=== PATIENT | male | born 1960 | race Caucasian/White ===

== ENCOUNTER 2024-09-23 08:09 | Observation (INO) ==
--- NOTE | 2024-08-22 11:51 | PAT Medication Instructions ---
Medication Instructions Date of Service August 22, 2024 Home Medications amlodipine 10 mg tablet 10 mg PO QAM atenolol 50 mg tablet 50 mg PO QAM atorvastatin 80 mg tablet 80 mg PO HS ycugfvhykm-yaoosjpotalpk-neunngvo 50 mg-300 mg-40 mg capsule (Fioricet) 1 cap PO BID cholecalciferol (vitamin D3) 50 mcg (2,000 unit) tablet 2,000 unit PO QAM levothyroxine 50 mcg tablet 50 mcg PO QAM omega-3s 300 nb-saw-yxk-other ebinh6e-uxds oil 1,000 mg capsule ([place]-3 Fish Oil) 1 cap PO QAM rosuvastatin 40 mg tablet 40 mg PO HS topiramate 50 mg capsule,extended release 24 hr 50 mg PO QAM albuterol sulfate 90 mcg/actuation aerosol inhaler 2 puff inhalation UD PRN SOB finasteride 5 mg tablet 5 mg PO QAM mometasone 110 mcg/actuation(30 doses) breath activated powder inhaler 2 inh inhalation DAILY multivitamin 1 tab PO QAM rivaroxaban 20 mg tablet (Xarelto) 20 mg PO QAM semaglutide 0.25 mg or 0.5 mg (2 mg/3 mL) subcutaneous pen injector 0.5 mg subcut Q7D triamterene 37.5 mg PO QAM Continue as directed mometasone 110 mcg/actuation(30 doses) breath activated powder inhaler 2 inh inhalation DAILY ASK your prescriber and surgeon rivaroxaban 20 mg tablet (Xarelto) 20 mg PO QAM (in order to get spinal anesthesia DOS- must be off Xarelto/rivaroxaban for at least 72 hours) STOP taking 2 weeks before surgery omega-3s 300 es-fcg-qlz-other iduvx0d-eijv oil 1,000 mg capsule ([place]-3 Fish Oil) 1 cap PO QAM STOP taking at least 7 days before surgery semaglutide 0.25 mg or 0.5 mg (2 mg/3 mL) subcutaneous pen injector 0.5 mg subcut Q7D DO NOT take the morning of surgery edsuxiraik-ztwxkausxvbrf-vdoheqox 50 mg-300 mg-40 mg capsule (Fioricet) 1 cap PO BID cholecalciferol (vitamin D3) 50 mcg (2,000 unit) tablet 2,000 unit PO QAM multivitamin 1 tab PO QAM triamterene 37.5 mg PO QAM Take morning of surgery With a small sip of water, OTHERWISE NOTHING TO EAT OR DRINK AFTER MIDNIGHT: amlodipine 10 mg tablet 10 mg PO QAM atenolol 50 mg tablet 50 mg PO QAM levothyroxine 50 mcg tablet 50 mcg PO QAM topiramate 50 mg capsule,extended release 24 hr 50 mg PO QAM albuterol sulfate 90 mcg/actuation aerosol inhaler 2 puff inhalation UD PRN SOB (use if needed; please bring with you to hospital day of surgery if possible) finasteride 5 mg tablet 5 mg PO QAM Take evening before surgery atorvastatin 80 mg tablet 80 mg PO HS ciahecbsvc-hqezhmfdklapj-mazahrff 50 mg-300 mg-40 mg capsule (Fioricet) 1 cap PO BID rosuvastatin 40 mg tablet 40 mg PO HS albuterol sulfate 90 mcg/actuation aerosol inhaler 2 puff inhalation UD PRN SOB (if needed) Other Notes If you have any questions please call us at [phone] or [phone] or [phone] or [phone]
--- NOTE | 2024-08-31 09:56 | Anesthesiology Consultation ---
Date of Service August 31, 2024 Assessment & Plan (1) Encounter for pre-operative examination: - Infectious disease screening: Per assessment on 08/31/24- No known recent infectious disease contacts or current infectious disease symptoms. - Outpatient joint assessment: Pt currently scheduled for inpatient pathway. If surgeon requests review for outpatient joint pathway, patient is not recommended candidate for outpatient joint program from anesthesia standpoint based on available information. - Xarelto instructions: patient made aware that for neuraxial anesthesia, Xarelto needs to be held 72 hours prior to surgery. Patient voiced understanding/will check if okay with prescriber. - Semaglutide instructions: Patient informed by PAT to stop 7 days prior to surgery- voiced understanding. DOS 09/23. Advised last dose to be 09/16. Chart Review Chart Review: Acceptable Risk for Surgery and Patient seen in Pre Admission Testing Teaching & Discussion Pre-Anesthesia Teaching/Discussion Notes: Instructed NPO after midnight before surgery,except medications with 15 cc of water. Medication instructions provided according to the PAT guidelines. History Surgery Operation Date: 09/23/24 09:00 Proposed Procedures p Right Total Knee Arthroplasty - Gil Benitez DO Height/Weight Height: 5 ft 11 in Weight: 128.9 kg Allergies Allergy/AdvReac Type Severity Reaction Status Date / Time Penicillins Allergy Unknown Unknown Verified 08/29/24 11:53 (childhood) Medications Home Medications Medication Instructions Recorded Confirmed Last Taken amlodipine 10 mg tablet 10 mg PO QAM 01/05/19 08/19/24 01/19/19 atenolol 50 mg tablet 50 mg PO QAM 01/05/19 08/19/24 01/19/19 atorvastatin 80 mg tablet 80 mg PO HS 01/05/19 08/19/24 01/19/19 yxqqfticea-jdhfrofygzclm-iaboaciw 1 cap PO BID 01/05/19 08/19/24 01/15/19 50 mg-300 mg-40 mg capsule (Fioricet) cholecalciferol (vitamin D3) 50 2,000 unit PO QAM 01/05/19 08/19/24 01/19/19 mcg (2,000 unit) tablet levothyroxine 50 mcg tablet 50 mcg PO QAM 01/05/19 08/19/24 01/19/19 omega-3s 300 dd-urc-vxj-other 1 cap PO QAM 07/04/1608/19/24 01/19/19 gvhgg5o-bifq oil 1,000 mg capsule ([place]-3 Fish Oil) rosuvastatin 40 mg tablet 40 mg PO HS 01/05/19 08/19/24 01/19/19 topiramate 50 mg capsule,extended 50 mg PO QAM 01/05/19 08/19/24 01/19/19 release 24 hr albuterol sulfate 90 mcg/actuation 2 puff inhalation UD PRN SOB 08/19/24 08/19/24 Unknown aerosol inhaler finasteride 5 mg tablet 5 mg PO QAM 08/19/24 08/19/24 Unknown mometasone 110 mcg/actuation(30 2 inh inhalation DAILY 08/19/24 08/19/24 Unknown doses) breath activated powder inhaler multivitamin 1 tab PO QAM 08/19/24 08/19/24 Unknown rivaroxaban 20 mg tablet (Xarelto) 20 mg PO QAM 08/19/24 08/19/24 Unknown semaglutide 0.25 mg or 0.5 mg (2 0.5 mg subcut Q7D 08/19/24 08/19/24 Unknown mg/3 mL) subcutaneous pen injector triamterene 37.5 mg PO QAM 08/19/24 08/19/24 Unknown Past Medical History Medical History Asthma Atrial fibrillation Taking Xarelto Follows with [facility] BPH (benign prostatic hyperplasia) Hx of colonic polyps Hx of migraines Hyperlipidemia Hypertension Hypothyroidism Osteoarthritis Exercise / Class Metabolic Activity III < 4 Walking/Shop/Light housework Past Family History Family History Father Family history of diabetes mellitus Other No family history of adverse response to anesthesia Past Surgical History Surgical History History of colonoscopy History of tonsillectomy History of wisdom tooth extraction Hx of foot surgery Left big toe partial amputation (r/t trauma) Right 2nd toe amputation (r/t infection) Status post correction of deviated nasal septum Past Anesthesia History No Hx of Anesthesia Complications and No Family Hx of Anesthesia Complications History of PONV No Hx of PONV and No Hx of Motion Sickness Social History Smoking Status: Former smoker Do You Dip or Chew Tobacco: No (Quit years ago; advised) Smoking End Date: Quit years ago Hx Alcohol Use: Yes Alcohol type: other alcohol intake frequency: a few times a week Hx Substance Use: No substance use type: does not use Review of Systems Patient denies chest pain, shortness of breath, fever, chills, cough, wheezing, palpitations. Physical Exam Vital Signs BP 129/93 P 81 TEMP 98.2 SP02 96%RA RESP 16 Physical Full cervical extension range of motion. Full TMJ range of motion. TMD 3 finger breaths Mallampati Score III Dentition: left lower side missing, crown (molar) Lungs: clear throughout to auscultation Cardiac: regular rate and irregularly rhythm, no murmurs noted Spine: normal Carotid arteries: negative bruit Extremities: no LE edema Thick neck Lab Results Anesthesia Preop Results Results Anesthesia Widget: WBC 11.62 K/ul (4.8-10.8) H 08/31/24 Hgb 14.7 g/dl (14.0-18.0) 08/31/24 Hct 43.5 % (42.0-52.0) 08/31/24 Plt 390 K/uL (130-400) 08/31/24 Na 139 mmol/L (136-145) 08/31/24 K 3.7 mmol/L (3.5-5.1) 08/31/24 Cl 106 mmol/L (98-107) 08/31/24 CO2 28 mmol/L (21-32) 08/31/24 BUN 21 mg/dl (6-23) 08/31/24 Creat 0.76 mg/dl (0.6-1.4) 08/31/24 Glucose Level 86 mg/dl (70-99(Fasting)) 08/31/24 PT 11.1 Seconds (9.0-12.0) 08/31/24 PTT 31 Seconds (21-31) 08/31/24 INR 1.0 (0.9-1.1) 08/31/24 Blood Type A Positive 08/31/24 Antibody Screen NEGATIVE 08/31/24 Testing Electrocardiogram Date: 08/31/24 A.fib at 78bpm. Chest X-Ray Date: 08/31/24 FINDINGS: There is mild cardiomegaly without pulmonary vascular congestion. No effusion or consolidation. There is aortic tortuosity. IMPRESSION: No acute findings. Stress Test Date: 11/02/18 Type: exercise 4.6 METS. 107% MPHR. Negative for ischemia by EKG criteria.
[~2024-09-23 08:09] MED LIST: ROPIVACAINE 0.5% 5 MG/ML 30 ML VIAL ONE
[2024-09-23] MEDS ORDERED: MIDAZOLAM HCL 1 MG/ML 2ML VIAL ONE (09:14)
[2024-09-23] MEDS ORDERED: PROPOFOL IV EMULSION 10 MG/ML 20 ML VIAL IV ONE (09:15)
[2024-09-23] MEDS: GABAPENTIN 600 MG DOSE PO SCH (09:20)
[2024-09-23] MEDS: FAMOTIDINE 20 MG TAB PO SCH (09:20)
[2024-09-23] MEDS: LR 60ML/HR IV SCH (09:20)
[2024-09-23] MEDS: ACETAMINOPHEN 500 MG TAB PO SCH ×2 (09:20→15:10)
[2024-09-23] MEDS: LR 500ML BOLUS, THEN 15ML/HR IV SCH (09:32)
[2024-09-23] MEDS: dexAMETHasone**PF** 10 MG/ML VIAL IV SCH (09:32)
--- NOTE | 2024-09-23 10:04 | History & Physical Bridge Note ---
Date of Service September 23, 2024 History & Physical Bridge Note I have examined the patient, reviewed the History & Physical and in the interval since the performance of the History & Physical I have noted the following changes of clinical significance: no changes noted
[2024-09-23] MEDS ORDERED: HYDROmorphone INJ 1 MG/ML SYRINGE IV PRN (10:27)
[2024-09-23] MEDS ORDERED: ePHEDrine sulfate 50 MG/ML AMP IV PRN (10:27)
[2024-09-23] MEDS ORDERED: ONDANSETRON INJ 2 MG/ML 2 ML VIAL IV PRN ×2 (10:27→14:22)
[2024-09-23] MEDS ORDERED: ATROPINE SULFATE 0.1 MG/ML 10ML SYR IV PRN (10:27)
[2024-09-23] MEDS ORDERED: fentaNYL citrate PF 100 MCG/2 ML VIAL IV PRN (10:27)
[2024-09-23] MEDS: TRANEXAMIC ACID 1,000 MG **IV Pre-op IV SCH (10:56)
[2024-09-23] MEDS: ceFAZolin 3000MG 3,000 MG/72.5 ML BAG IV SCH (11:15)
[2024-09-23] MEDS: ORTHO JOINT ANESTHETIC ONE (11:42)
[2024-09-23] MEDS: ROPIV 0.5% 246mg, Ketorolac 30mg, EPINEPHrine 0.5mg in NSS INFIL SCH (11:42)
[2024-09-23] MEDS: TRANEXAMIC ACID 1,000 MG **IV Intra-op IV SCH (12:12)
--- NOTE | 2024-09-23 12:18 | Operative Report ---
PG Post Operative Report Pre & Post Diagnosis Operation Date: 09/23/24 11:00 Pre-Op Diagnosis: Right Knee Arthritis Post-Op Diagnosis: Right Knee Arthritis I identified the patient and participated in the time-out.: Yes Procedure Operation Date: 09/23/24 11:00 Actual Procedures p Right Total Knee Arthroplasty, Cemented(Right) - Gil Benitez DO Surgeon Gil Benitez DO Carbon Furnace Operator Alex Galicia PA-C Estimated Blood Loss 50 Findings Consistent with Post-Op Diagnosis Specimens Right femoral and tibial bone Description of Procedure Implants used: I used a Manny Persona total knee arthroplasty system with a size 10 standard PS femur, G tibia, 37 oval patella, and a size 10 CPS polyethylene bearing. All components were cemented in place with Biomet cement. Barrie arrived [facility] for the above procedure. He was seen in the preoperative holding area and the operative extremity was identified and signed. He was given a preoperative antibiotic, TXA, a spinal anesthetic and an adductor nerve block. He was taken back to the operating room and laid on the table in supine position. He was given basic sedation. The operative knee was then prepped and draped in sterile fashion. A timeout was done, and the patient and the operative extremity was properly identified. A midline incision was made directly over the patella. Dissection was taken down to the extensor mechanism. A medial parapatellar arthrotomy was used. The medial retinaculum was released and the fat pad was mostly excised. The knee was flexed and the ACL, PCL, and meniscus were removed. A drill was sent down the center of the femoral canal followed by an intramedullary luma. Off that luma a distal femoral cutting block was placed. 9 mm was resected off the distal femur at 5 of valgus. A posterior referencing AP sizing guide was then placed on the distal femur. The femur measured to be a size 10. 2 drill holes were placed in 3 of external rotation. A 4-in-1 cutting block was then impacted into place. Anterior, posterior, and chamfer cuts were then made. The proximal tibia was then exposed. An external tibial alignment guide was placed. A tibial cut guide was then anchored in place and the proximal tibia was then resected. The posterior aspect of the knee was then opened up and any additional meniscus fragments and osteophytes were removed. The tibia measured to be a size G. The tibial plate was then placed in the appropriate rotation and the tibia was drilled and punched. Trial components were then placed. I used a size 10 CPS polyethylene insert. The knee was brought through a full range of motion and felt to be stable. The peg holes for the femoral component were then drilled. The patella was then everted and 9 mm was resected off the posterior aspect of the patella. The patella measured to be a size 37 oval. 3 peg holes were then drilled. A trial patella was placed. The knee was once again brought through a full range of motion and felt to be stable. Trial components were then removed. The surrounding soft tissues were injected with 100 cc of an orthopedic pain control cocktail. All components were then cemented into place with Biomet cement. The final polyethylene insert was then snapped into place. Once cement was dry the tourniquet was deflated. Hemostasis was obtained. A dilute betadyne lavage was then done for 3 minutes. The joint was then irrigated with normal saline solution. The medial parapatellar arthrotomy was then closed with #1 Vicryl suture. The skin was closed with 2-0 Vicryl, 3-0V lock suture, and sameer. A soft compressive dressing was placed. He was then transferred to a hospital bed and taken to the postanesthesia care unit in stable condition. He tolerated the procedure well. Alex Galicia PA-C, was present for the entire procedure. He was critical for patient positioning, prepping, draping, retraction exposure, wound closure and application of sterile dressing. I attest to the content of the Intraoperative Record and any orders documented therein. Any exceptions are noted below.
--- NOTE | 2024-09-23 13:07 | XRay Report ---
XR knee RT 1 or 2V routine CLINICAL HISTORY: Surgical Post Op COMPARISON: None FINDINGS: Right knee prosthesis shows no hardware complication. There is expected soft tissue gas. S kin sameer are present. IMPRESSION: Unremarkable postoperative exam. ACT 112: Negative or not required by law. Electronically signed by: Bassem Whitehead M.D. 09/23/2024 1:05 PM
--- NOTE | 2024-09-23 13:42 | Anesthesiology Progress Note ---
Date of Service September 23, 2024 Anesthesia Post Procedure Vital Signs Vital Signs: Temp Pulse Pulse Resp BP Pulse Ox O2 Del Method 09/23/24 13:30 62 16 106/80 94 Nasal Cannula 09/23/24 13:20 58 L 20 114/85 95 Nasal Cannula 09/23/24 13:10 66 20 122/91 96 Oxymask 09/23/24 13:00 68 21 107/87 96 Oxymask 09/23/24 12:50 64 20 112/68 97 Oxymask 09/23/24 12:43 36.0 C L 69 14 98/72 L 92 Oxymask 09/23/24 09:09 Room Air 09/23/24 09:09 36.4 C L 82 20 138/99 95 Room Air O2 Flow Rate 09/23/24 13:30 2 09/23/24 13:20 2 09/23/24 13:10 3 09/23/24 13:00 4 09/23/24 12:50 6 09/23/24 12:43 6 09/23/24 09:09 09/23/24 09:09 Pain Intensity Right Knee: Pain Intensity: 8 Transfer of Care Handoff Completed per policy Notes Mental Status: alert / awake / arousable and participated in evaluation Patient Amnestic to Procedure: Yes Nausea / Vomiting: adequately controlled Pain: adequately controlled Airway Patency, RR, SpO2: stable & adequate BP & HR: stable & adequate Hydration State: stable & adequate Anesthetic Complications: no major complications apparent and Pt Satisfied with anesthetic care
[2024-09-23] MEDS ORDERED: NALOXONE HCL 0.4 MG/1 ML VIAL/CARP IV PRN (14:22)
[2024-09-23] MEDS ORDERED: MAGNESIUM HYDROXIDE SUSP 30 ML UDC PO PRN (14:22)
[2024-09-23] MEDS ORDERED: bisacodyL 10 MG SUPP PR PRN (14:22)
[2024-09-23] MEDS ORDERED: ALBUTEROL HFA 8 GM INHALER INH PRN (14:22)
[2024-09-23] MEDS ORDERED: HYDROmorphone INJ 0.5 MG/0.5 ML SYR IV PRN (14:22)
[2024-09-23] MEDS ORDERED: METOCLOPRAMIDE HCL INJ 5 MG/ML 2 ML VIAL IV PRN (14:22)
[2024-09-23 15:33] VITALS: RESP 18
[2024-09-23] MEDS: oxyCODONE HCL IR 5 MG TAB (IMMEDIATE RELEASE) PO PRN (15:33)
[2024-09-23] MEDS: ceFAZolin 2000MG 2,000 MG/15 ML SYR IV SCH (18:10)
[2024-09-23] MEDS ORDERED: ROSUVASTATIN CALCIUM 20 MG TAB PO SCH (21:00)
[2024-09-23] MEDS: SENNA 8.6 MG TAB PO SCH (22:03)
[2024-09-23] MEDS: DOCUSATE SODIUM 100 MG CAP PO SCH (22:04)
[2024-09-23] MEDS: FLUTICASONE FUROATE 100MCG 14 PUFFS/INHALER INH SCH (22:05)
[2024-09-23] MEDS: TOPIRAMATE 25 MG TAB PO SCH (22:05)
[2024-09-23] MEDS: ATORVASTATIN 40 MG TAB PO SCH (22:05)
[2024-09-24] MEDS: LEVOTHYROXINE SODIUM 50 MCG TABLET PO SCH (05:30)
[2024-09-24] MEDS: amLODIPine BESYLATE 5 MG TAB PO SCH (07:51)
[2024-09-24] MEDS: dexAMETHasone 4 MG TAB PO SCH (07:52)
[2024-09-24] MEDS: ATENOLOL 50 MG TABLET PO SCH (07:52)
[2024-09-24] MEDS: RIVAROXABAN 10 MG TABLET PO SCH (07:52)
[2024-09-24] MEDS: CHOLECALCIFEROL 25 MCG (1000 UNITS) TAB PO SCH (07:53)
[2024-09-24] MEDS: FINASTERIDE 5 MG TAB PO SCH (07:53)
[2024-09-24] MEDS: TRIAMTERENE/HCTZ 37.5/25MG TAB PO SCH (07:53)
[2024-09-24] MEDS: MULTIVITAMIN TAB PO SCH (07:54)
--- NOTE | 2024-09-24 08:01 | Orthopedic Progress Note ---
Date of Service September 24, 2024 Assessment & Plan (1) Status post right knee replacement: Overall he is doing very well. He is not having much pain in the left knee. He will be seen by physical therapy today for ambulation and range of motion exercises. The nursing staff can change his dressing after physical therapy. He is on Xarelto for DVT prophylaxis. He can be discharged home later today. He will follow-up with orthopedics in 2 weeks. Maurice Sood was seen and examined at bedside this morning. Overall is doing very well. He is not having much pain in his left knee. He has been up and ambulating to the bathroom. He has no complaints.. Review of Systems All systems reviewed & are unremarkable except as noted in HPI & below. Physical Exam On physical exam of his left knee, the dressing is clean and dry. His leg is out full extension. He has active dorsiflexion plantarflexion of his left ankle.. Results & Data Results & Data Laboratory Results . Diagnostic Findings Postoperative x-rays of the left knee show the prosthesis to be in anatomic alignment without any evidence of fracture, dislocation, or loosening.. PG Care Time/CCT Total # of Minutes Spent Total Time Spent with Patient: Total time spent is greater than 50% in coordination of care (as documented) at patient's floor/unit and/or counseling patient: Coding Level of Care Code 51860 Post Operative Follow-Up Diagnoses Status post right knee replacement Z96.651
--- NOTE | 2024-09-24 08:02 | Discharge Summary ---
Date of Service September 24, 2024 Principal Diagnosis Same as "Discharge Diagnosis" noted below under Discharge Instructions. Discharge Exam On physical exam of his left knee, the dressing is clean and dry. His leg is out full extension. He has active dorsiflexion plantarflexion of his left ankle.. Discharge Data Procedures Performed Operation Date: 09/23/24 11:00 Actual Procedures p Right Total Knee Arthroplasty, Cemented(Right) - Gil Benitez DO Ordered Studies 09/23/24 05:00 US - OR guided needle placemen Stat Hospital Course (1) Status post right knee replacement: On September 23, 2024 Barrie arrived at [facility] and underwent a left knee replacement without complication. He had a spinal anesthetic. Postoperatively, he was started on Xarelto for DVT prophylaxis and transferred to the general orthopedic floors. His hospital course was uneventful. On postop day #1, his vital signs were stable and his pain was well-controlled. He was able to participate well with physical therapy doing ambulation and range of motion exercises. He was then discharged to home. He will follow-up with orthopedics in 2 weeks. PG Care Time/CCT Total # of Minutes Spent Total Time Spent with Patient: Total time spent is greater than 50% in coordination of care (as documented) at patient's floor/unit and/or counseling patient: Discharge Plan Discharge Items Patient Disposition: Home - Self-Care Reason For Visit: Right Knee Arthritis Discharge Diagnosis: Right knee replacement Activity: Per Instructions section Non-emergency contact: Surgeon Call non-emergency contact if: your wound has increased redness and your wound has increased drainage Follow-up/Referrals: Suyapa Houston PA-C [Primary Care Provider] - Diet: Regular Addtl Attending Provider Instructions: Activity and Therapy Recommendations: * If you are using [facility] then therapy will be provided at your home until they feel you have accomplished all of your goals. * If you are using [facility] then Physical Therapy will be provided until they feel you are ready to start Outpatient Physical Therapy. * If you are not using home therapy then Outpatient Physical Therapy should start about 3-5 days from your day of surgery. Therapy will last about 6-10 weeks * It is important not to put a pillow under your knee when you are relaxing or sleeping. It is just as important to make sure you are getting your knee perfectly straight as it is to regain your knee bend. * You were shown a series of exercises in the hospital. Do these exercises three times each day including the exercises you were shown in physical therapy. * Get up and walk several times each day. For the first four weeks, try not to stand or walk for more than one hour at a time. If you do stand or walk for more than one hour, you will not hurt anything, but your leg will likely swell. * As you feel comfortable, you may change from the walker or crutches to a cane and then to independent walking. Medications: * Narcotic You will likely be sent home from the hospital with a prescription for the narcotic pain medication that worked best throughout your stay. * Cefadroxil -take the antibiotic twice a day for 10 days to help prevent infection. * Takes Xarelto 10 mg daily for 2 weeks. Then you may resume your 20 mg dosing. * Other medications may be prescribed for specific circumstances. If you have any questions, please call the office at . * Resume previous home medications unless otherwise instructed TEDs/Elastic Stockings: The white elastic stockings help limit swelling and prevent blood clots from forming in your legs.~ The more you wear them, the more they work. Wear them for 2 weeks. Dressing Care: The dressing can be changed after physical therapy on postop day #1. Daily dry dressing changes for a few days, especially if the incision is still draining some. If the incision is not draining then you may leave the sameer open to air. If there is a little bit of drainage or if the sameer are getting stuck on your clothing then cover the incision with a dry dressing. The sameer will be removed at your 2 week follow-up appointment. Showering: You may shower 5 days from the day of surgery as long as the incision is no longer draining. You may shower with the sameer exposed. Let soapy water run over the sameer and pat them dry. Do not scrub or soak the incision. Diet: You may resume your previous diet. Things To Watch For: * Drainage from the incision site that occurs more than one week after your surgery. * Increased redness at the incision site. * Fever above 102 degrees Fahrenheit. * Unusual chest pain or shortness of breath. * Call [facility] at with any of the above problems Follow-Up Visit: Follow-up with Dr. Benitez's office 2-3 weeks after your day of surgery. We will remove your sameer and answer any questions. If you have any additional questions or concerns, Dr Benitez is usually in the office at the same time and will be available An appointment was probably scheduled when you signed-up for surgery in the office. If you have any questions call Office Instructions: More detailed instructions as well as Frequently Asked Questions were provided in a folder by our office when you signed-up for surgery. Please review these instructions when you get home. If you have any further questions or concerns, please feel free to call the office at [phone] Pending Studies at Discharge: No Stand-Alone Forms: My [employer], Smoking Cessation Medications and DC Order Prescriptions: New Xarelto 10 mg Tablet 10 mg PO DAILY 14 Days Qty: 14 0RF cefadroxil 500 mg capsule 500 mg PO BID 10 Days Qty: 20 0RF oxycodone 5 mg tablet 5 mg PO Q6H PRN (Reason: pain) Qty: 30 0RF Continued atorvastatin 80 mg Tablet 80 mg PO HS amlodipine 10 mg Tablet 10 mg PO QAM levothyroxine 50 mcg Tablet 50 mcg PO QAM atenolol 50 mg Tablet 50 mg PO QAM rosuvastatin 40 mg Tablet 40 mg PO HS cholecalciferol (vitamin D3) 2,000 unit Tablet 2,000 unit PO QAM zviipoyeyr-vsgtonyfqqmha-zeyr [Fioricet] 50-300-40 mg Capsule 1 cap PO BID topiramate 50 mg Capsule,Extended Release 24hr 50 mg PO QAM [place]-3 Fish Oil 300-1,000 mg Capsule 1 cap PO QAM multivitamin Tablet 1 tab PO QAM albuterol sulfate 90 mcg/actuation Hfa Aerosol Inhaler 2 puff INHALATION UD PRN (Reason: SOB) finasteride 5 mg tablet 5 mg PO QAM mometasone 110 mcg/ actuation (30) Aerosol Powdr Breath Activated 2 inh INHALATION DAILY Rx Instructions: administer 1 hour before bedtime semaglutide 0.25 mg or 0.5 mg (2 mg/3 mL) Pen Injector 0.5 mg SUBCUT Q7D Patient Comments: fridays triamterene 37.5 mg PO QAM Held Xarelto 20 mg tablet 20 mg PO QAM Hold Instructions: Resume on 10/08/24. Discharge Orders: Discharge Order (Routine); Ordered 09/24/24 Ordered By: Gil Benitez Admission Data Admit Date/Time: 09/23/24 12:49 Attending Provider: Gil Benitez Admit Provider: Gil Benitez Primary Care Provider: Suyapa Houston
[2024-09-24 08:15] VITALS: BP 122/86; PULSE 88; TEMP 98.1; O2SAT 95
== END 2024-09-24 10:22 | disposition home or self-care (01) ==
LOC: 3N 08:09 → ASU 08:09